=== PATIENT | female | born 1990 | race African-American/Black ===

== ENCOUNTER 2018-02-11 13:00 | Emergency (ER) | payer OTHER ==
[~2018-02-11] VITALS: Ht 165.1 cm; Wt 86.0 kg
[2018-02-11 13:08] VITALS: BP 108/72
== END 2018-02-11 22:30 | disposition left against medical advice (07) ==
LOC: ER 13:00
DX: Z53.21 Procedure and treatment not carried out due to patient leaving prior to being seen by health care provider (principal)